=== PATIENT | female | born 1970 ===

== ENCOUNTER → 2018-04-02 22:24 | Outpatient (REF) | payer OTHER, MEDICAID, SELFPAY ==
[2018-04-02 22:30] LABS: RBC Urine None Seen (0-5/HPF)
[2018-04-02 23:31] LABS: Add Manual Diff / Slide Review NO; Basophils Absolute Auto 0 /uL (0-100); Basophils Percent Auto 0.6 % (0-2); Eosinophils Absolute Auto 100 /uL (0-450); Eosinophils Percent Auto 3.3 % (2-4); Hematocrit 38.4 % (36-46); Hemoglobin 12.8 g/dL (12.0-16.0); Lymphocytes Absolute Auto 1400 /uL (1100-4500); Lymphocytes Percent Auto 31.1 % (25-40); Mean Corpuscular HGB Conc 33.4 % (30-36); Mean Corpuscular Volume 86.7 fL (80-100); Monocytes Absolute Auto 400 /uL (0-900); Monocytes Percent Auto 8.8 % (3-14); Neutrophils Absolute Auto 2500 /uL (1500-7000); Neutrophils Percent Auto 56.2 % (50-75); Platelet Count 318 X10^3/uL (150-400); Red Blood Cell Count 4.42 X10^6/uL (4.0-5.2); Red Cell Distribution Width 13.3 % (11.6-14.8); White Blood Cell Count 4.4 X10^3/uL (4.5-11.0)
[2018-04-03 00:49] LABS: Appearance Urine UA CLEAR; Bilirubin Urine UA NEGATIVE (NEGATIVE); Color Urine UA YELLOW; Glucose Urine UA NEGATIVE (Negative); Ketones Urine UA NEGATIVE (NEGATIVE); Leukocyte Esterase Urine UA 1+ (NEGATIVE); Nitrite Urine UA NEGATIVE (Negative); Occult Blood Urine UA NEGATIVE (Negative); Protein Urine UA NEGATIVE (Negative); Urobilinogen Urine UA 0.2 E.U./dL (0.2)
[2018-04-03 01:10] LABS: Vitamin D 25 Hydroxy (D3) 33.1 ng/mL (30.0-100.0)
[2018-04-03 01:17] LABS: Bacteria Urine Many (>30); Calcium Oxalate Crystals Urine Many; Culture Indicated Urine Specimen Cultured; Squamous Epithelial Cell Urine 1-5 /HPF; WBC Urine 1-5/HPF (0-5/HPF)
[2018-04-03 01:24] LABS: Thyroid Stimulating Hormone 1.64 uIU/mL (0.47-4.68)
[2018-04-03 02:08] LABS: Alanine Aminotransferase 16 IU/L (9-52); Albumin 4.6 g/dL (3.5-5.0); Albumin Globulin Ratio 1.5 (1.0-2.8); Alkaline Phosphatase 51 U/L (38-126); Aspartate Aminotransferase 19 IU/L (14-36); BUN Creatinine Ratio 18.8 (6-22); Bilirubin Total 0.2 mg/dL (0.2-1.3); Blood Urea Nitrogen 15 mg/dL (7-17); Calcium 9.8 mg/dL (8.4-10.2); Carbon Dioxide 28 mmol/L (22-32); Chloride 103 mmol/L (98-107); Cholesterol 236 mg/dL (140-199); Estimated Glomerular Filt Rate > 60.0 mL/min (>60); Globulin 3.1 g/dL (1.7-4.1); Glucose 86 mg/dL (70-100); HDL Cholesterol 80 mg/dL (40-60); HEMOLYSIS < 15 (0-50); LDL Cholesterol Calculated 144 mg/dL (<100); Potassium 4.2 mmol/L (3.4-5.1); Sodium 141 mmol/L (137-145); Total Protein 7.7 g/dL (6.3-8.2); Triglycerides 59 mg/dL (35-150)
[2018-04-03 08:56] LABS: Free T3, Triiodothyronine Free 3.41 pg/mL (2.77-5.27); T4 Total Thyroxine 6.94 ug/dL (5.5-11.0)
[2018-04-04 20:10] LABS: Progesterone 3.6 ng/mL
[2018-04-07 11:50] LABS: Estrogen 475.8 pg/mL
== END ==
LOC: LAB 22:24
PROVIDERS: Visit Provider Naturopath
DX: G47.9 Sleep disorder, unspecified (principal); Z83.3 Family history of diabetes mellitus; N94.819 Vulvodynia, unspecified
CPT/HCPCS: 36415; 80053; 80061; 81001; 82306; 82672; 84144; 84436; 84443; 84481; 85025; 87086